=== PATIENT | female | born 1990 | race Caucasian/White ===

== ENCOUNTER 2019-04-05 07:56 | Emergency (ER) | payer OTHER ==
[~2019-04-05] VITALS: Ht 160 cm; Wt 124.3 kg
[2019-04-05 08:04] VITALS: Ht 160 cm; Wt 124.3 kg
[2019-04-05 09:13] VITALS: BP 130/70
== END 2019-04-05 09:13 | disposition home or self-care (01) ==
LOC: ED 07:56
DX: J02.8 Acute pharyngitis due to other specified organisms (principal); Z90.49 Acquired absence of other specified parts of digestive tract; Z98.51 Tubal ligation status

== ENCOUNTER 2019-11-26 17:10 | Emergency (ER) | payer OTHER ==
[~2019-11-26] VITALS: Ht 160 cm; Wt 115.2 kg
[2019-11-26 17:17] VITALS: Ht 160 cm; Wt 115.2 kg
[2019-11-26 18:29] VITALS: BP 108/71
== END 2019-11-26 18:29 | disposition home or self-care (01) ==
LOC: ED 17:10
DX: M54.12 Radiculopathy, cervical region (principal); Z90.49 Acquired absence of other specified parts of digestive tract; Z98.890 Other specified postprocedural states; Z98.51 Tubal ligation status
CPT/HCPCS: J1885

== ENCOUNTER 2020-04-26 08:24 | Emergency (ER) | payer OTHER ==
[~2020-04-26] VITALS: Ht 160 cm; Wt 114.3 kg
[2020-04-26 08:31] VITALS: BP 122/60
== END 2020-04-26 10:21 | disposition home or self-care (01) ==
LOC: ED 08:24
DX: G56.02 Carpal tunnel syndrome, left upper limb (principal)